=== PATIENT | female | born 1980 | race Caucasian/White ===

== ENCOUNTER → 2018-08-14 13:53 | Outpatient (CLI) | payer BC | END | disposition home or self-care (01) | LOC: D.US 13:53 | DX: R10.9 Unspecified abdominal pain (principal) ==

== ENCOUNTER → 2019-10-01 07:34 | Outpatient (CLI) | payer BC | END | disposition home or self-care (01) | LOC: D.MRI 07:34 | PROVIDERS: ATTEND Orthopaedic Surgery | DX: M54.16 Radiculopathy, lumbar region (principal) ==